=== PATIENT | female | born 1990 | race Caucasian/White ===

== ENCOUNTER 2022-04-03 16:06 | Emergency (ER) | payer OTHER ==
[2022-04-03 16:26] VITALS: BP 112/72; PULSE 63; TEMP 98.1; BMI 24.4
[2022-04-03] MEDS ORDERED: KETOROLAC TROMETHAMINE 30 MG/1 ML VIAL IM ONE (16:51)
[2022-04-03] MEDS ORDERED: KETOROLAC TROMETHAMINE 30 MG/1 ML VIAL ONE (16:59)
== END 2022-04-03 17:06 | disposition home or self-care (01) ==
LOC: JER 16:06 → JERFT 16:06
PROC: 3E023GC Introduction of Other Therapeutic Substance into Muscle, Percutaneous Approach (ICD-10-PCS; principal; 2022-04-03)
DX: R68.84 Jaw pain (principal)
CPT/HCPCS: 96372; 99284-25